=== PATIENT | female | born 1975 | race Two or more races ===

== ENCOUNTER 2019-12-14 17:09 | Outpatient (CLI) | payer OTHER | END 2019-12-14 17:12 | disposition home or self-care (01) | LOC: MAMO-SONO 17:09 | PROVIDERS: ATTEND Obstetrics & Gynecology | DX: Z12.31 Encounter for screening mammogram for malignant neoplasm of breast (principal); N60.11 Diffuse cystic mastopathy of right breast; N60.12 Diffuse cystic mastopathy of left breast ==

== ENCOUNTER 2021-03-05 11:23 | Outpatient (CLI) | payer OTHER | END 2021-03-05 11:29 | disposition home or self-care (01) | LOC: MAMO-SONO 11:23 | PROVIDERS: ATTEND Obstetrics & Gynecology | DX: N60.11 Diffuse cystic mastopathy of right breast (principal); N60.12 Diffuse cystic mastopathy of left breast; Z12.31 Encounter for screening mammogram for malignant neoplasm of breast; E04.1 Nontoxic single thyroid nodule ==

== ENCOUNTER 2022-03-25 08:49 | Outpatient (CLI) | payer OTHER | END 2022-03-25 09:16 | disposition home or self-care (01) | LOC: MAMO-SONO 08:49 | PROVIDERS: ATTEND Obstetrics & Gynecology | DX: Z12.31 Encounter for screening mammogram for malignant neoplasm of breast (principal); N60.11 Diffuse cystic mastopathy of right breast; N60.12 Diffuse cystic mastopathy of left breast ==

== ENCOUNTER 2023-05-12 15:08 | Outpatient (CLI) | payer OTHER | END 2023-05-12 15:11 | disposition home or self-care (01) | LOC: MAMO-SONO 15:08 | PROVIDERS: ATTEND Obstetrics & Gynecology | DX: N60.11 Diffuse cystic mastopathy of right breast (principal); N60.12 Diffuse cystic mastopathy of left breast; Z12.31 Encounter for screening mammogram for malignant neoplasm of breast ==

== ENCOUNTER 2024-08-15 14:17 | Outpatient (CLI) | payer OTHER | END 2024-08-15 14:35 | disposition home or self-care (01) | LOC: MAMO-SONO 14:17 | PROVIDERS: ATTEND Obstetrics & Gynecology | DX: N60.11 Diffuse cystic mastopathy of right breast (principal); N60.12 Diffuse cystic mastopathy of left breast; Z12.31 Encounter for screening mammogram for malignant neoplasm of breast ==